=== PATIENT | female | born 1940 | race Caucasian/White ===

== ENCOUNTER 2020-06-15 | Outpatient (REF) | payer MEDICARE, SELFPAY ==
[2020-06-20 14:46] LABS: FIT Int Ctl YES; FIT1 NEGATIVE (NEGATIVE); FIT2 NEGATIVE (NEGATIVE)
== END 2020-06-15 00:01 | disposition home or self-care (01) ==
LOC: HO.LNP
PROVIDERS: Visit Provider Internal Medicine
DX: Z12.11 Encounter for screening for malignant neoplasm of colon (principal)
CPT/HCPCS: 82274

== ENCOUNTER 2021-02-08 09:05 | Day surgery (SDC) | payer MEDICARE, SELFPAY ==
[2021-02-02 12:58] VITALS: BMI 22.6
--- NOTE | 2021-02-07 15:42 | HO.ANESPROP2 ---
Documented by User: Angella Rene NP 02/20/21 14:26 HPI - Anesthesia Eval Consult details Narrative: 80yo F for Colonoscopy [facility] Past Medical History Medical History Arthritis Skin cancer Surgical History Surgical History H/O colonoscopy Hx of section Hx of hysterectomy Social History Social History Household Members Other:: Patient Tobacco Use Status: Tobacco use Unknown Use of substances other than those prescribed or required for medical reasons: No Advance Directives Information Provided: Yes (informational brochure mailed) Advance Directives on File: No Patient : No Meds Allergies Allergy/AdvReac Type Severity Reaction Status Date / Time NSAIDS (Non-Steroidal Allergy Unknown Unknown Verified 02/02/21 12:53 Anti-Inflamma Penicillins Allergy Unknown Unknown Verified 02/02/21 12:53 Sulfa (Sulfonamide Allergy Unknown Unknown Verified 02/08/21 09:41 Antibiotics) [SULFA (SULFONAMIDE ANTIBIOTICS)] Home Medications Medication Instructions Recorded Confirmed Last Taken Type cetirizine 10 mg tablet (Zyrtec) 10 mg PO DAILY 02/02/21 02/02/21 Unknown History fluticasone propionate 50 1 spray INTRANASAL DAILY 02/02/21 02/02/21 Unknown History mcg/actuation nasal spray,suspension multivitamin 1 tab PO DAILY 02/02/21 02/02/21 Unknown History Exam Exam Date and Time: February 07, 2021 1542 Height,Weight and Vital Signs: Height 5 ft 1 in Weight 54.431 kg Assessment and Plan Assessment Anesthesia Assessment: Chart Reviewed Documented by User: Noa Loomis MD 02/08/21 09:15 [facility] Past Medical History Medical History Arthritis Skin cancer Functional capacity: independent ambulation Patient : No Family History Family history of problems with anesthesia: No Surgical History Surgical History H/O colonoscopy Hx of section Hx of hysterectomy Social History Social History Household Members Other:: Patient Tobacco Use Status: Tobacco use Unknown Use of substances other than those prescribed or required for medical reasons: No Advance Directives Information Provided: Yes (informational brochure mailed) Advance Directives on File: No Patient : No Meds Allergies Allergy/AdvReac Type Severity Reaction Status Date / Time NSAIDS (Non-Steroidal Allergy Unknown Unknown Verified 02/02/21 12:53 Anti-Inflamma Penicillins Allergy Unknown Unknown Verified 02/02/21 12:53 Sulfa (Sulfonamide Allergy Unknown Unknown Verified 02/08/21 09:41 Antibiotics) [SULFA (SULFONAMIDE ANTIBIOTICS)] Home Medications Medication Instructions Recorded Confirmed Last Taken Type cetirizine 10 mg tablet (Zyrtec) 10 mg PO DAILY 02/02/21 02/02/21 Unknown History fluticasone propionate 50 1 spray INTRANASAL DAILY 02/02/21 02/02/21 Unknown History mcg/actuation nasal spray,suspension multivitamin 1 tab PO DAILY 02/02/21 02/02/21 Unknown History Assessment and Plan Final Anesthetic Review Family History of Problems with Anesthesia: No Final Preanesthetic Review: No Changes in Pt Med Stat Patient Risk: Low Procedure Risk: Low Anesthetic Plan Anesthetic Plan: MAC: Disposition: Standard PACU
[2021-02-08 09:08] VITALS: BP 104/56; PULSE 63; RESP 17; TEMP 36.6; O2SAT 97
[2021-02-08] MEDS: Lactated Ringers 1,000 ML 100 ML IVCONT (09:33)
[2021-02-08] MEDS: Sodium Phosphate,Mono-Dibasic 133 ML ENEMA PR (09:41)
--- NOTE | 2021-02-08 11:38 | PM.OP ---
Brief Operative Note Date of Service: 02/08/21 Pre-op diagnosis: Screening Post-op diagnosis: other (Colon polyp) Procedure: Colonoscopy to the cecum with cold snare polypectomy Surgeon: Robert Garcia Anesthesia: MAC Was an Ag Service Manager used for this Procedure?: No Estimated blood loss (mL): 3.0 Pathology: other (A. Cecal polyp) Condition: stable Disposition: PACU
[2021-02-08 11:39] VITALS: BP 94/48; PULSE 69; RESP 14; TEMP 36.4; O2SAT 94
--- NOTE | 2021-02-08 11:39 | HO.POSTANES ---
Post Anesthesia Evaluation Post Anesthesia Evaluation Vital Signs: Vital Signs Temp Pulse Resp BP Pulse Ox 02/08/21 09:08 98 F 63 17 104/56 L 97 Anesthesia: Monitored Mental Status: Awake Pain Control: Satisfactory Nausea/Vomiting: None Hydration: Adequate Anesthesia-Related Issues: No Anes. Related Issues
[2021-02-08 11:54] VITALS: BP 84/45; PULSE 66; RESP 16; O2SAT 96
[2021-02-08 12:09] VITALS: BP 90/47; PULSE 54; RESP 18; O2SAT 99
[2021-02-08 12:24] VITALS: BP 104/51; PULSE 55; RESP 18; TEMP 36.4; O2SAT 95
--- NOTE | 2021-02-08 12:29 | OP_ITS ---
SURGEON: Robert Garcia MD INDICATIONS: The patient presents for evaluation of personal history of colon polyps, family history of colon cancer, and colorectal cancer screening. Full consent has been obtained from her for this, including risks of bleeding and perforation. PREOPERATIVE DIAGNOSIS: POSTOPERATIVE DIAGNOSIS: PROCEDURE PERFORMED: Colonoscopy to the cecum and terminal ileum with snare polypectomy. ESTIMATED BLOOD LOSS: COMPLICATIONS: ANESTHESIA: Monitored anesthesia care. ASSISTANTS: SPECIMENS: PREOPERATIVE DIAGNOSES: Colorectal cancer screening, personal history of colon polyps, family history of colon cancer. POSTOPERATIVE DIAGNOSES: Colorectal cancer screening, personal history of colon polyps, family history of colon cancer, colon polyp, diverticulosis and internal hemorrhoids. DESCRIPTION OF PROCEDURE: The patient was placed in the left lateral decubitus position. The digital rectal exam revealed no abnormalities. The Olympus video pediatric colonoscope was entered into the rectum and advanced to the cecum with the assistance of abdominal wall pressure. Once in the cecum, I did identify normal-appearing cecal pouch other than an approximately 5 mm raised and grossly adenomatous polyp, which was snared and removed with the cold snare. The polypectomy site appeared to be clean, without any sign of residual polyp nor any significant bleeding. The remainder of the cecum appeared normal. The terminal ileum was cannulated and appeared normal. The scope was withdrawn back in the colon. The scope was slowly withdrawn assessing all mucosal surfaces carefully. Preparation was excellent. I did not visualize any other polyps, colitis, nor angiodysplasia. There was a mild amount of sigmoid diverticulosis. In the rectum, scope was retroflexed visualizing internal hemorrhoids, but no other pathology. The rectal mucosa appeared normal. The scope was straightened out and withdrawn from the patient. She tolerated the procedure well and was returned to recovery area in stable condition. IMPRESSION: 1. Colon polyp, status post snare polypectomy. 2. Diverticulosis. 3. Internal hemorrhoids. PLAN: The results of the pathology will be checked. Given the relatively minimal findings and her age, I do not think she will need any further screening colonoscopies. She will otherwise see me on a p.r.n. basis. She was advised not to use any aspirin and NSAIDs for 1 week. MD VLAD Jimenez/PETRA / [id number]
== END 2021-02-08 12:54 | disposition home or self-care (01) ==
PROVIDERS: PCP Internal Medicine; Visit Provider Internal Medicine
PROC: 0DJD8ZZ Inspection of Lower Intestinal Tract, Via Natural or Artificial Opening Endoscopic (ICD-10-PCS; CPT 45378; principal; 2021-02-08 10:10)
DX: Z12.11 Encounter for screening for malignant neoplasm of colon (principal); Z86.010 Personal history of colon polyps; Z80.0 Family history of malignant neoplasm of digestive organs; D12.0 Benign neoplasm of cecum; K57.30 Diverticulosis of large intestine without perforation or abscess without bleeding; K64.8 Other hemorrhoids; Z85.828 Personal history of other malignant neoplasm of skin
CPT/HCPCS: 45385; 88305

== ENCOUNTER 2024-08-07 13:19 | Outpatient (AMB) | payer MEDICARE, SELFPAY ==
--- NOTE | 2024-08-07 13:20 | MHC.PC.OV ---
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: No Accompanied by: Self / Same As Patient Allergies NSAIDS (Non-Steroidal Anti-Inflamma Allergy (Unknown, Verified 08/07/24 13:57) Unknown Penicillins Allergy (Unknown, Verified 08/07/24 13:57) Unknown Sulfa (Sulfonamide Antibiotics) [SULFA (SULFONAMIDE ANTIBIOTICS)] Allergy (Unknown, Verified 08/07/24 13:57) Unknown Medication List - Last Reconciled 08/07/24 by Corina Hale PA-C ammonium lactate 12% 1 appl topical BID biotin 5 mg PO DAILY cholecalciferol (vitamin D3) 25 mcg PO DAILY estradiol 1 patch transdermal QWEEK estradiol 0.01%(0.1mg/gram) vaginal omega-3 fatty acids 500 mg PO DAILY potassium chloride ER 20 mEq PO DAILY vit A,C,I-[id number]-[id number]-[id number]-qef-bxwp 1000 unit-300mg -100 unit-2 mg 1,000 unit-300mg -100 unit-2 mg tabs PO Tobacco use date assessed: 08/07/24 Fall risk assessment: No Falls in past year Last assessed Fall Risk: 08/07/24 Dental Screening Dental Screen Date: 08/07/24 Did you have a dental visit in the last 12 months?: Yes Did you have a dental problem in the last 6 months where you did not have access to dental care?: No Was dental information given to patient?: Patient has dentist HPI follow up HPI Details The patient is an 83-year-old female presenting for a 3-6 months follow-up and to establish new primary care provider. She was a patient of Dr. Dominguez who currently retired in April of 2024. She is here to discuss her chronic medical conditions. She denies any acute complaints at this time. She has a notable history including surgical management of uterine cancer, resulting in a complete hysterectomy. Additionally, there is a history of basal cell carcinoma treatment with various dermatological interventions, including full facial procedures. The patient also manages fibromyalgia with current medication aiding symptom relief and suffers from arthritis affecting primarily her hands. She reports experiencing memory loss, which she perceives is increasing over time. Discussion highlighted a concern for bone density evaluation, noting the absence of recent scans. She adheres to screening protocols, with a reported normal mammogram and scheduled colonoscopy screenings. Social History - Lives independently, engages actively in taking care of her daily activities and chores. - Engages in personal and household activities without assistance. [facility] Medical History (Updated 08/07/24 @ 14:31 by Corina Hale PA-C) Advanced directives, counseling/discussion Vitamin D deficiency Basal cell carcinoma Follow-up exam, less than 3 months since previous exam Basal cell carcinoma (BCC) in situ of skin Colon cancer screening History of mammogram (~06/26/24) Adenomatous polyp Herpes zoster without complication Uterine cancer Fibromyalgia Irritable bowel syndrome Cataracts, bilateral Derangement of right patella Primary osteoarthritis Multiple allergies Memory loss Skin cancer Arthritis Surgical History History of tonsillectomy Hx of section Hx of hysterectomy H/O colonoscopy (~02/08/21) Family History Mother PSP (progressive supranuclear palsy) Colon cancer Father No problems noted. Maternal Grandmother Diabetes Social History Household Members Other:: Housing: House Alcohol intake: current Alcohol intake frequency: does not drink Patient Tobacco Use Status: Former Tobacco user service: No Current occupational status: retired Cognitive needs: No Hearing needs: No Vision needs: Yes (RX glasses) Questionnaire PHQ-9 Over the last 2 weeks, how often have you been bothered by any of the following problems? 1. Little interest or pleasure in doing things: not at all 2. Feeling down, depressed, or hopeless: not at all 3. Trouble falling or staying asleep, or sleeping too much: not at all 4. Feeling tired or having little energy: not at all 5. Poor appetite or overeating: not at all 6. Feeling bad about yourself - or that you are a failure or have let yourself or your family down: not at all 7. Trouble concentrating on things, such as reading the newspaper or watching television: not at all 8. Moving or speaking so slowly that other people could have noticed. Or the opposite - being so fidgety or restless that you have been moving around a lot more than usual: not at all 9. Thoughts that you would be better off or of hurting yourself in some way: not at all Total score: 0 Depression Screening Interpretation: Negative Depression Screening Done: Yes 17697 - PHQ-9 Billing: Yes Source: Developed by Drs. Robert Farfan, Catalina Castellano, Hernando Cardenas and colleagues, with an educational so from [employer]. Thrive Questionnaire Date Thrive assessed: 08/07/24 I am a: Patient What is your living situation today?: I have a steady place to live Within the past 12 months, did the food you bought not last and you didn't have the money to get more?: Never true Within the past 12 months, did you worry whether your food would run out before you got money to buy more?: Never true Do you have trouble paying for medicines?: No Do you have trouble getting transportation to medical appointments?: No Do you have trouble paying your heating and electricity bill?: No Do you have trouble taking care of your child, family member or friend?: No Do you have trouble with day-to-day activities such as bathing, preparing meals, shopping, managing finances, etc.?: No Are you currently unemployed and looking for a job?: No Are you interested in more education?: No Please select the resources that you would like help with: None THRIVE Score: 0 AUDIT C Alcohol Use Questionnaire (AUDIT-C) 1. How often do you have a drink containing alcohol?: Monthly or less 2. How many drinks containing alcohol do you have on a typical day when you are drinking?: 1 or 2 3. How often do you have six or more drinks on one occasion?: Never Total Score: 1 Score Reviewed/Action Taken: No CHANDANA-7 AMB Questionnaire CHANDANA-7 Date CHANDANA - 7 assessed: 08/07/24 Feeling nervous, anxious, or on edge: 0 = Not at all Not being able to stop or control worryin = Not at all Worrying too much about different things: 0 = Not at all Trouble relaxin = Not at all Being so restless that it is hard to sit still: 0 = Not at all Becoming easily annoyed or irritable: 0 = Not at all Feeling afraid as if something awful might happen: 0 = Not at all Total CHANDANA-7 score (0-4 normal; 5-9 mild; 10-14 moderate; 15-21 severe): 0 Source: Developed by Drs. Robert Farfan, Catalina Castellano, Hernando Cardenas and colleagues, with an educational so from [employer]. CHANDANA-7 Assessment Billing CHANDANA-7 Assessment Tool: CHANDANA-7 Assessment 16172 Review of Systems Const Details: - Skin: Reports history of basal cell carcinoma, dermatological procedures. - Musculoskeletal: Reports arthritis predominantly in the hands. - Neurological: Reports memory loss. - Psychological: Denies symptoms suggestive of anxiety or depression. - Gastrointestinal: Denies irritable bowel syndrome, black or bloody stools. - Respiratory: Denies shortness of breath during routine activities or while lying down. - Cardiovascular: Denies chest pain. - Endocrine: Reports vitamin D deficiency. Physical exam (Primary Care) Vital Signs: Last Vital Signs Pulse 72 08/07/24 13:24 BP 128/82 08/07/24 13:24 Pulse Ox 95 08/07/24 13:24 Oxygen Delivery Method Room Air 08/07/24 13:24 Care Plan Goal for BP management: <130/90 at Goal pt refused weight Tobacco/Smoking Status: Tobacco use Status Tobacco use date assessed 08/07/24 08/07/24 13:39 Patient Tobacco Use Status Former Tobacco user 08/07/24 13:39 PHQ-9: PHQ-9 Score PHQ-9: Total score 0 08/07/24 13:41 Depression Screening Interpretation: Negative Thrive Assessment: Date of Thrive Assessment Date Thrive assessed 08/07/24 08/07/24 13:39 ACP: Patient does not have advance care planning on file. She reports her healthcare proxy would be her son. I gave her information for healthcare proxy and most form she was not ready to fill out the paperwork today. She would like to discuss further with her family and will most likely have a decision in 3-6 months at her next follow-up visit. Const Other: Appearance: Alert. Oriented X3. No acute distress. Head: Normal external exam. Normocephalic. Atraumatic. Eyes: Pupils are equal, round, and reactive to light. Extraocular movements intact. Conjunctiva and sclera normal. Eyelids normal. Ears: External auditory canal normal. Tympanic membranes normal. Throat: Pharynx normal. Uvula midline. Moist mucous membranes. Neck: Normal inspection. Neck supple. Full range of motion. No adenopathy. Thyroid Normal. No meningeal signs. No neck mass noted. Cardiovascular: Normal heart rate and rhythm. Heart sound normal. No murmurs noted. Pulses normal throughout. Respiratory: No respiratory distress. Painless inspiration. Breath sounds normal. No wheezes/rales/rhonchi noted. Chest nontender. No accessory muscle usage noted or decreased air movement noted. Abdomen: Soft and nontender. Bowel sounds normal in all 4 quadrants. No distention noted. No organomegaly noted. No visible injury noted. Back: No costovertebral angle tenderness. Full range of motion noted. Skin: Skin warm and dry. Normal skin color. Normal skin turgor. No rashes/lesions/lacerations noted. Extremities: No lower extremity edema. Extremities exhibit normal range of motion. Extremities nontender. Neuro: Oriented X 3. No motor deficit. No sensory deficit. Reflexes normal. Results Reviewed Results Reviewed: - Labs: Vitamin D deficiency previously noted. - Tests: Last mammogram reported normal, lateral mammographic density not appreciably dense, mammogram was dated June 26 of this year. Coding Level of Care Code New Pt Level 4 (35104) Complex EM visit Add On G2211 Diagnoses Follow-up exam, less than 3 months since previous exam Z09 Colon cancer screening Z12.11 Uterine cancer C55 Fibromyalgia M79.7 Irritable bowel syndrome K58.9 Primary osteoarthritis M19.91 Memory loss R41.3 Basal cell carcinoma C44.91 Vitamin D deficiency E55.9 Advanced directives, counseling/discussion Z71.89 Additional Codes PHQ-9 - 89704 - PHQ-9 Billing: Yes ([id number]) CHANDANA-7 Assessment Billing - CHANDANA-7 Assessment Tool: CHANDANA-7 Assessment 01642 ([id number]) Time Spent (min) 40 Assessment & Plan Assessment & Plan (1) Follow-up exam, less than 3 months since previous exam: Code(s): Z09 - Encounter for follow-up examination after completed treatment for conditions other than malignant neoplasm Category: Medical (2) Colon cancer screening: Code(s): Z12.11 - Encounter for screening for malignant neoplasm of colon Category: Medical Plan: Will refer to last dipper patient due for colonoscopy by 2025. She would like to go closer to her home instead of [facility]. Her last colonoscopy was February of 2023. (3) Uterine cancer: Comment: s/p uterine removal Code(s): C55 - Malignant neoplasm of uterus, part unspecified Category: Medical Plan: The patient has no current treatment requirements post-hysterectomy. Condition is in remission will continue to monitor. (4) Fibromyalgia: Code(s): M79.7 - Fibromyalgia Category: Medical Plan: Management is stable with medications currently effective. Emphasis on maintaining physical activity. Condition is chronic and stable continue to monitor. (5) Irritable bowel syndrome: Code(s): K58.9 - Irritable bowel syndrome, unspecified Category: Medical Plan: Patient denies any GI complaints at this time. Condition is chronic and stable continue to monitor. (6) Primary osteoarthritis: Code(s): M19.91 - Primary osteoarthritis, unspecified site Category: Medical Plan: Management to continue with no new interventions. Encourage regular hand exercises. Condition is chronic and stable continue to monitor. (7) Memory loss: Code(s): R41.3 - Other amnesia Category: Medical Plan: Suggest cognitive evaluation if symptoms progress but patient to manage with memory aids currently. Condition is chronic and stable will continue to monitor. (8) Basal cell carcinoma: Code(s): C44.91 - Basal cell carcinoma of skin, unspecified Category: Medical Plan: Dermatological care to continue with her specialist; sun protection reiterated. Condition is chronic and stable continue to monitor. (9) Vitamin D deficiency: Code(s): E55.9 - Vitamin D deficiency, unspecified Category: Medical Plan: Reinforce adherence to current supplementation regimen. Condition is chronic and stable continue to monitor. (10) Advanced directives, counseling/discussion: Code(s): Z71.89 - Other specified counseling Category: Medical Plan: Discussed with patient about advanced directives and gave her information. She will discuss with family and return with decisions at her next 3-6 month follow-up. Plan Plan Patient was informed and verbally consented to the use of an ambient scribe for clinic note documentation during this visit. 1. Uterine Cancer The patient has no current treatment requirements post-hysterectomy. Advanced directives discussion is encouraged to finalize her preferences. 2. Fibromyalgia Management is stable with medications currently effective. Emphasis on maintaining physical activity. 3. Arthritis Management to continue with no new interventions. Encourage regular hand exercises. 4. Basal Cell Carcinoma Dermatological care to continue with her specialist; sun protection reiterated. 5. Memory Loss Suggest cognitive evaluation if symptoms progress but patient to manage with memory aids currently. 6. Vitamin D Deficiency Reinforce adherence to current supplementation regimen. 7. Hyperlipidemia Plan for blood work to assess and continue monitoring through dietary management. During the visit, I reviewed the patient's current medical status and management plans. Our discussion focused on the stable management of fibromyalgia and arthritis, with continued use of current therapies and recommended physical activity. Regarding basal cell carcinoma, I emphasized the importance of sun protection and follow up with her home delivery driver. The patient was informed of the potential need for a cognitive assessment to evaluate the memory loss progression. We worked through the importance of advanced directives and healthcare proxy documents and how these relate to her wishes regarding extraordinary life-saving measures. I ordered vitamin D and lipid panels to further assess her baseline and manage supplementation needs. We discussed her wellness status and next planned colonoscopy to keep her preventive care schedule up to date. I clarified fasting requirements for lab work and emphasized the importance of consistent dietary management. Orders: Orders XR DEXA axial skeleton Today M81.0 - Age-related osteoporosis without current pathological fracture Complete Blood Count Auto Diff Today Z00.00 - Encounter for general adult medical examination without abnormal findings Hemoglobin A1c Today Z00.00 - Encounter for general adult medical examination without abnormal findings Liver Panel Today Z00.00 - Encounter for general adult medical examination without abnormal findings Comprehensive [place]. Panel Fast Today Z00.00 - Encounter for general adult medical examination without abnormal findings Vitamin B12 and Folate Today Z00.00 - Encounter for general adult medical examination without abnormal findings Vitamin D 25-OH Total Today Z00.00 - Encounter for general adult medical examination without abnormal findings TSH reflex Free T4 Today Z00.00 - Encounter for general adult medical examination without abnormal findings C Reactive Protein Today Z00.00 - Encounter for general adult medical examination without abnormal findings Lipid Panel Today Z00.00 - Encounter for general adult medical examination without abnormal findings Magnesium Today Z00.00 - Encounter for general adult medical examination without abnormal findings Erythrocyte Sedimentation Rate Today Z00.00 - Encounter for general adult medical examination without abnormal findings Referrals Gastroenterology Referral Z12.11 - Encounter for screening for malignant neoplasm of colon Patient Instructions: - Continue with your medication regimen for fibromyalgia and inform us of any changes in your symptoms. - Maintain regular physical activity and engage in stretching exercises, particularly for your hands. - Follow up with your home delivery driver for any skin concerns and use sun protection regularly. - Continue vitamin D supplements and adhere to the plan. - Schedule and complete fasting blood work to check your lipid levels. - Discuss and update your advanced directives and healthcare proxy to reflect your wishes. - Follow up in six months or sooner if any symptoms worsen.
[2024-08-07 13:24] VITALS: BP 128/82; PULSE 72; O2SAT 95
--- OUTSIDE RECORDS SUMMARY | 2024-08-07 13:39 | XMS_ITS | Data Portability ---
Author Organization [facility], , [facility] Address [address] [place] [address] Assessment No assessment recorded. Plan of Treatment Reminders Order Date Submit Date Provider Last Modified By Organization Details Last Modified Time Details Appointments None record ed. Lab None record ed. Referral None record ed. Procedures None record ed. Surgeries None record ed. Imaging None record ed. Medication Orders None record ed. Patient TargetsNo targets recorded. Patient InstructionsNo instructions recorded. Reason for Referral None Reported. Results Created Date Observation Date Name Description Value Unit Range Abnormal Flag Note LastModifiedBy Organization Detail LastModifiedTime Result Notes None recorded. Procedures Surgical History Date Name Laterality Status Provider Name and Address Organization Details Recorded Time 01/01/20 15 Ranjana - EGD completed Dhaval Chilel MD [address] [place] [address], [phone], [facility] 12/31/2014 10:29:47 01/01/20 15 Ranjana - Colonoscopy completed Dhaval Chilel MD [address] [place] [address], [phone], [facility] 12/31/2014 10:29:48 12/26/19 05 completed Not Available [facility] 1 06:05:52 Imaging Results None recorded. Procedure Notes None recorded. Medical Equipment None Reported. Medications Name Sig Start Date Stop Date Status Note LastModified by Organization Details LastModified Time prochlorperazine maleate 10 mg tablet active Not Available Not Available Not Available peg 3350-electrolytes 236 gram-22.74 gram-6.74 gram-5.86 gram solution active Not Available Not Available Not Available Vitals None Recorded Social History None recorded. Functional Status None recorded. Mental Status None recorded. Family History Nothing Reported. Medical History No medical history recorded. Gynecological HistoryNo gynecological history recorded. Obstetrics History GPAL:G 0 P 0 0 0 0 Past Encounters Encounter ID Performer Location Encounter Start Date Encounter Closed Date Diagnosis/Indication Diagnosis SNOMED-CT Code Diagnosis ICD10 Code Diagnosis Note [id number] JONATHAN CAMP MD [facility], [address] [address] 12/25/2004 10:05:34 04/28/2008 02:02:29 [id number] Dhaval Chilel MD [facility], [address] [address] 12/31/2014 08:39:38 12/31/2014 12:40:20 Health Concerns Section Related Observation LastModified by Organization Detai ls LastModified Time None Recorded Concern Status LastModified by Organization Details LastModified Time None Recorded Advance Directives Directive None Recorded Payers Encounter Date Sequence Insurance Name Policy Number Policy Blue Covered Member ID Blue Member ID Guarantor Name 12/25/2004 1 [facility] [id number] Dalia Acuna [id number] Dalia Acuna 12/31/2014 1 [place] PPO) [id number] Dalia Acuna [id number] Dalia Acuna 12/31/2014 2 [place] Dalia Acuna [id number] Dalia Acuna OBGyn Episode No OBEpisode recorded.
== END 2024-08-07 14:14 | disposition home or self-care (01) ==
LOC: HO.HMCSH 13:19
PROVIDERS: PCP Internal Medicine; Visit Provider Physician Assistant Medical
DX: Z09 Encounter for follow-up examination after completed treatment for conditions other than malignant neoplasm (principal); Z12.11 Encounter for screening for malignant neoplasm of colon; C55 Malignant neoplasm of uterus, part unspecified; M79.7 Fibromyalgia; K58.9 Irritable bowel syndrome, unspecified; M19.91 Primary osteoarthritis, unspecified site; R41.3 Other amnesia; C44.91 Basal cell carcinoma of skin, unspecified; E55.9 Vitamin D deficiency, unspecified; Z71.89 Other specified counseling

== ENCOUNTER → 2024-08-07 13:19 | Outpatient (BNVA) | payer MEDICARE, SELFPAY | PROVIDERS: PCP Internal Medicine; Visit Provider Physician Assistant Medical | DX: M79.7 Fibromyalgia (principal); K58.9 Irritable bowel syndrome, unspecified; M19.91 Primary osteoarthritis, unspecified site; R41.3 Other amnesia; C44.91 Basal cell carcinoma of skin, unspecified; E55.9 Vitamin D deficiency, unspecified; Z09 Encounter for follow-up examination after completed treatment for conditions other than malignant neoplasm; Z85.42 Personal history of malignant neoplasm of other parts of uterus; Z90.710 Acquired absence of both cervix and uterus; Z71.89 Other specified counseling | CPT/HCPCS: 96127; 99202 ==

== ENCOUNTER 2024-10-06 10:56 | Outpatient (REF) | payer MEDICARE, SELFPAY ==
--- NOTE | ~2024-10-06 | MM_ITS ---
EXAMINATION: DXA BONE DENSITY AXIAL HISTORY: M81.0 - Age-related osteoporosis without current pathological fracture TECHNIQUE: Teads Dual energy absorptiometry (DEXA) of the lumbar spine, total left hip, and femoral neck was performed. COMPARISON: There are no prior studies for comparison. FINDINGS: The bone mineral density of the lumbar spine is 1.104 g/cm2, corresponding to a T-score of -0.6, and a Z-score of 1.5. This is indicative of normal bone mineral density. The bone mineral density of the left total hip is 0.730 g/cm2, corresponding to a T-score of -2.2, and a Z-score of 0.1. This is indicative of osteopenia. The bone mineral density of the left femoral neck is 0.717 g/cm2, corresponding to a T-score of -2.3, and a Z-score of 0.1. This is indicative of osteopenia. FRACTURE RISK: The FRAX index suggests a risk of major osteoporotic fracture of 34.5%, and of hip fracture 24.2%. MM/XR DEXA axial skeleton IMPRESSION: Based on bone mineral density, and according to World Health Organization (WHO) criteria, the diagnosis is consistent with osteopenia. Statistically, 68% of repeat scans fall within 1 SD (+/- 0.010 g/cm2 for AP spine L1-L4) and 1 SD (+/- 0.012 g/cm2 for femur total) FRAX is a trademark of the [employer] [place] for Metabolic Bone Disease, a World Health Organization (WHO) Collaborating Center. Electronically signed by: Robert Espitia MD 10/06/2024 11:29 AM EDT
--- OUTSIDE RECORDS SUMMARY | 2024-10-06 12:10 | XMS_ITS | Data Portability ---
Author Organization [facility], , [facility] Address [address] [place] [address] Assessment No assessment recorded. Plan of Treatment [...] Ranjana - EGD completed Dhaval Chilel MD [address] [place] [address], [phone], [facility] 12/31/2014 10:29:47 01/01/20 15 Ranjana - Colonoscopy completed Dhaval Chilel MD [address] [place] [address], [phone], [facility] 12/31/2014 10:29:48 12/26/19 05 completed Not Available [facility] 1 06:05:52 Imaging Results None recorded. Procedure [...] SNOMED-CT Code Diagnosis ICD10 Code Diagnosis Note [id number] [facility], [address] [address] 12/25/2004 10:05:34 04/28/2008 02:02:29 [id number] Dhaval Chilel MD [facility], [address] [address] 12/31/2014 08:39:38 12/31/2014 12:40:20 Health Concerns Section Related Observation LastModified by Organization Detai ls LastModified Time None Recorded Concern Status LastModified by Organization Details LastModified Time None Recorded Advance Directives Directive None Recorded Payers Insurance Date Sequence Insurance Name Policy Number Policy Blue Covered Member ID Blue Member ID Guarantor Name 12/27/2014 1 [facility] [id number] Dalia Susse [id number] Dalia Susse 12/31/2014 2 [place] Dalia S Susse [id number] Dalia Susse 12/27/2014 2 [place] Dalia Susse [id number] Dalia Susse 01/11/2015 1 [facility] (MEDICARE REPLACEMENT PPO) [id number] Dalia Susse [id number] Dalia Susse OBGyn Episode No OBEpisode recorded.
== END 2024-10-06 10:57 | disposition home or self-care (01) ==
LOC: HO.MAMMO 10:56
PROVIDERS: PCP Internal Medicine; Visit Provider Physician Assistant Medical
DX: M81.0 Age-related osteoporosis without current pathological fracture (principal)
CPT/HCPCS: 77080

== ENCOUNTER → 2024-10-06 11:00 | Outpatient (BNV) | payer MEDICARE, SELFPAY | PROVIDERS: PCP Internal Medicine; Visit Provider Radiology Diagnostic Radiology | DX: E28.39 Other primary ovarian failure (principal) | CPT/HCPCS: 77080 ==

== ENCOUNTER 2025-02-10 13:11 | Outpatient (AMB) | payer MEDICARE, SELFPAY ==
--- NOTE | 2025-02-10 13:13 | A.OFFPC_ITS ---
Vital Signs 02/10/25 13:14 BMI Reason not done Patient refused/unable BP 102/54 L Blood Pressure Location Rt brachial Position Sitting Respiration 14 Pulse 66 Pulse Source Pulse Oximeter Temp 97.6 F Temp Source Temporal Artery Scan Pulse Oximetry (%) 98 Oxygen Delivery Method Room Air Comment pt refused wt/ht Intake Visit Reasons: 6 month f/u Industrial Engineer Required: No Accompanied by: Self / Same As Patient Allergies NSAIDS (Non-Steroidal Anti-Inflamma Allergy (Unknown, Verified 02/10/25 13:24) Unknown Penicillins Allergy (Unknown, Verified 02/10/25 13:24) Unknown Sulfa (Sulfonamide Antibiotics) (SULFA (SULFONAMIDE ANTIBIOTICS)) Allergy (Unknown, Verified 02/10/25 13:24) Unknown Medication List - Last Reconciled 02/10/25 by Corina Hale PA-C ammonium lactate 12% 1 appl topical BID biotin 5 mg PO DAILY cholecalciferol (vitamin D3) 25 mcg PO DAILY estradiol 1 patch transdermal QWEEK estradiol 0.01%(0.1mg/gram) vaginal omega-3 fatty acids 500 mg PO DAILY potassium chloride ER 20 mEq PO DAILY Tobacco use date assessed: 08/07/24 Dental Screening Dental Screen Date: 08/07/24 HPI 6 month f/u HPI Details The patient is an 84-year-old female presenting for an annual physical exam and evaluation of a finger injury. She sustained an injury to her right third and fourth fingers last while leaf blowing. She experienced bruising, redness, and significant pain, which has been alleviated by taping the fingers together. She was evaluated at a hospital where an X-ray ruled out a fracture, and the injury was diagnosed as a sprain. The patient also reports a tick bite approximately one month ago, which caused a red, round lesion and interfered with her sleep. She self-treated with a course of doxycycline she had on hand from a previous prescription. The patient underwent a colonoscopy on December 31, during which one polyp was found and biopsied. She experienced severe post-procedural complications, including significant abdominal gas and severe arm pain that lasted for a week. A nurse informed her that the facility ran out of CO2 during the procedure, necessitating the use of air, which prolonged the procedure and led to her lying on her arm for an extended period. The patient has a diagnosis of osteopenia from a prior bone density scan. A referral to endocrinology was placed previously, but she never received a call for an appointment. She is unable to take oral medications for this condition. The patient reports getting easily tired and is no longer able to run up a down- escalator. 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 Social History - Physical Activity: The patient reports being unable to run up a down escalator anymore as it is too tiring. - Family History: Patient denies any fam rissa history of heart attacks. [facility] Medical History (Updated 02/10/25 @ 14:04 by Corina Hale PA-C) Annual physical exam Heart murmur Prophylactic measure Sprain, finger Osteopenia Advanced directives, counseling/discussion Vitamin D deficiency Basal cell carcinoma Follow-up exam, less than 3 months since previous exam Basal cell carcinoma (BCC) in situ of skin Colon cancer screening History of mammogram (~06/26/24) Adenomatous polyp Herpes zoster without complication Uterine cancer Fibromyalgia Irritable bowel syndrome Cataracts, bilateral Derangement of right patella Primary osteoarthritis Multiple allergies Memory loss Skin cancer Arthritis Surgical History History of tonsillectomy Hx of section Hx of hysterectomy H/O colonoscopy (~01/01/25) Family History Mother PSP (progressive supranuclear palsy) Colon cancer Father No problems noted. Maternal Grandmother Diabetes Social History Household Members Other:: Housing: House Alcohol intake: current Alcohol intake frequency: does not drink Patient Tobacco Use Status: Former Tobacco user service: No Current occupational status: retired Cognitive needs: No Hearing needs: No Vision needs: Yes (RX glasses) Questionnaire PHQ-9 Over the last 2 weeks, how often have you been bothered by any of the following problems? 1. Little interest or pleasure in doing things: not at all 2. Feeling down, depressed, or hopeless: not at all 3. Trouble falling or staying asleep, or sleeping too much: not at all 4. Feeling tired or having little energy: not at all 5. Poor appetite or overeating: not at all 6. Feeling bad about yourself - or that you are a failure or have let yourself or your family down: not at all 7. Trouble concentrating on things, such as reading the newspaper or watching television: not at all 8. Moving or speaking so slowly that other people could have noticed. Or the opposite - being so fidgety or restless that you have been moving around a lot more than usual: not at all 9. Thoughts that you would be better off or of hurting yourself in some way: not at all Total score: 0 Depression Screening Interpretation: Negative Depression Screening Done: Yes 79303 - PHQ-9 Billing: Yes Source: Developed by Drs. Robert Farfan, Catalina Castellano, Hernando Cardenas and colleagues, with an educational so from [employer]. Thrive Questionnaire Date Thrive assessed: 08/07/24 I am a: Patient What is your living situation today?: I have a steady place to live Within the past 12 months, did the food you bought not last and you didn't have the money to get more?: Never true Within the past 12 months, did you worry whether your food would run out before you got money to buy more?: Never true Do you have trouble paying for medicines?: No Do you have trouble getting transportation to medical appointments?: No Do you have trouble paying your heating and electricity bill?: No Do you have trouble taking care of your child, family member or friend?: No Do you have trouble with day-to-day activities such as bathing, preparing meals, shopping, managing finances, etc.?: No Are you currently unemployed and looking for a job?: No Are you interested in more education?: No Please select the resources that you would like help with: None THRIVE Score: 0 AUDIT C Alcohol Use Questionnaire (AUDIT-C) 1. How often do you have a drink containing alcohol?: Monthly or less 2. How many drinks containing alcohol do you have on a typical day when you are drinking?: 1 or 2 3. How often do you have six or more drinks on one occasion?: Never Total Score: 1 Score Reviewed/Action Taken: No CHANDANA-7 AMB Questionnaire CHANDANA-7 Date CHANDANA - 7 assessed: 08/07/24 Feeling nervous, anxious, or on edge: 0 = Not at all Not being able to stop or control worryin = Not at all Worrying too much about different things: 0 = Not at all Trouble relaxin = Not at all Being so restless that it is hard to sit still: 0 = Not at all Becoming easily annoyed or irritable: 0 = Not at all Feeling afraid as if something awful might happen: 0 = Not at all Total CHANDANA-7 score (0-4 normal; 5-9 mild; 10-14 moderate; 15-21 severe): 0 Source: Developed by Drs. Robert Farfan, Catalina Castellano, Hernando Cardenas and colleagues, with an educational so from [employer]. CHANDANA-7 Assessment Billing CHANDANA-7 Assessment Tool: CHANDANA-7 Assessment 06655 Review of Systems Const Details: - Constitutional: Denies unintentional weight loss. - Cardiovascular: Reports dyspnea on exertion, specifically when trying to run up a down escalator. - Denies chest pain. - Gastrointestinal: Denies black or tarry stools. - Musculoskeletal: Reports pain, bruising, and swelling in the right third and fourth fingers following an injury. - Skin: Reports a prior tick bite that caused a red, round lesion. All systems reviewed & are unremarkable except as noted in HPI and below Physical exam (Primary Care) Vital Signs: Last Vital Signs Temp 97.6 F 02/10/25 13:14 Pulse 66 02/10/25 13:14 Resp 14 02/10/25 13:14 BP 102/54 L 02/10/25 13:14 Pulse Ox 98 02/10/25 13:14 Oxygen Delivery Method Room Air 02/10/25 13:14 Care Plan Goal for BP management: <140/90 at Goal Patient refused weight Tobacco/Smoking Status: Tobacco use Status Tobacco use date assessed 08/07/24 02/10/25 13:19 Patient Tobacco Use Status Former Tobacco user 02/10/25 13:19 PHQ-9: PHQ-9 Score PHQ-9: Total score 0 02/10/25 13:19 Depression Screening Interpretation: Negative Thrive Assessment: Date of Thrive Assessment Date Thrive assessed 08/07/24 02/10/25 13:19 Const Other: Appearance: Alert. Oriented X3. No acute distress. Head: Normal external exam. Normocephalic. Atraumatic. Eyes: Pupils are equal, round, and reactive to light. Extraocular movements intact. Conjunctiva and sclera normal. Eyelids normal. Ears: External auditory canal normal. Tympanic membranes normal. Throat: Pharynx normal. Uvula midline. Moist mucous membranes. Neck: Normal inspection. Neck supple. Full range of motion. No adenopathy. Thyroid Normal. No meningeal signs. No neck mass noted. Cardiovascular: Normal heart rate and rhythm. Heart sound normal. A murmur noted. Pulses normal throughout. Respiratory: No respiratory distress. Painless inspiration. Breath sounds normal. No wheezes/rales/rhonchi noted. Chest nontender. No accessory muscle usage noted or decreased air movement noted. Abdomen: Soft and nontender. Bowel sounds normal in all 4 quadrants. No di stention noted. No organomegaly noted. Back: No costovertebral angle tenderness. Full range of motion noted. Skin: Skin warm and dry. Normal skin color. Normal skin turgor. No rashes/lesions/lacerations noted. Extremities: No lower extremity edema. Extremities exhibit normal range of motion. Right hand third and fourth fingers are bruised and slightly swollen, with fingers taped together due to a sprain. All other extremities exhibit normal range of motion nontender. Normal capillary refill. Normal pulses. No cyanosis is noted. Neuro: Oriented X 3. No motor deficit. No sensory deficit. Reflexes normal. Results Reviewed Results Reviewed: - Finger X-ray: Normal, with no fracture identified. - Colonoscopy (December 31): Revealed one polyp, which was biopsied. - Bone Density Scan: Showed osteopenia. - Mammogram (03/05/2023): Is the most recent on record. Coding Level of Care Code Est Pt Level 4 (36242) Complex EM visit Add On G2211 Diagnoses Sprain, finger S63.619A Prophylactic measure Z29.9 Osteopenia M85.80 Heart murmur R01.1 Annual physical exam Z00.00 Additional Codes CHANDANA-7 Assessment Billing - CHANDANA-7 Assessment Tool: CHANDANA-7 Assessment 73150 ([id number]) PHQ-9 - 59247 - PHQ-9 Billing: Yes ([id number]) Time Spent (min) 60 Assessment & Plan Assessment & Plan (1) Sprain, finger: Code(s): S63.619A - Unspecified sprain of unspecified finger, initial encounter Category: Medical Plan: The patient's finger X-ray was noted to be normal, confirming a sprain rather than a fracture. An KALEB wrap was applied to the finger, using a tongue depressor as a splint, to be worn for about a week to provide stability and promote healing. The patient was instructed to remove the wrap for activities like showering. (2) Prophylactic measure: Code(s): Z29.9 - Encounter for prophylactic measures, unspecified Category: Medical Plan: A prescription for doxycycline will be sent to the [facility] at [facility] in [place] for the patient to have on hand for prophylaxis in case of a future tick bite. (3) Osteopenia: Code(s): M85.80 - Other specified disorders of bone density and structure, unspecified site Category: Medical Plan: Due to the patient's osteopenia and inability to tolerate oral medications, a referral to endocrinology is indicated. The referral information for the grab jack worker in [place] will be printed for the patient to call and schedule an appointment herself. (4) Heart murmur: Code(s): R01.1 - Cardiac murmur, unspecified Category: Medical Plan: A heart murmur was detected on physical exam. The possibility of this being related to age, genetics, or blood pressure was discussed. An echocardiogram was offered for further evaluation, but the patient declined at this time. The patient was advised to follow up if she develops chest pain or shortness of breath. (5) Annual physical exam: Code(s): Z00.00 - Encounter for general adult medical examination without abnormal findings Category: Medical Plan: This visit was established as the patient's annual physical. Fasting blood work, including a CBC and CMP, will be ordered to be completed within the month. A paper requisition for the labs will be printed as she will go to a [facility] lab on [address] [employer]. A referral will be placed for a new mammogram, as the last one on record was in February 2023. A follow-up appointment is scheduled in six months, on August 12. Plan Plan Patient was informed and verbally consented to the use of an ambient scribe for clinic note documentation during this visit. 1. Sprain Of Finger The patient's finger X-ray was noted to be normal, confirming a sprain rather than a fracture. An KALEB wrap was applied to the finger, using a tongue depressor as a splint, to be worn for about a week to provide stability and promote healing. The patient was instructed to remove the wrap for activities like showering. 2. Prophylactic Measures A prescription for doxycycline will be sent to the [facility] at [facility] in [place] for the patient to have on hand for prophylaxis in case of a future tick bite. 3. Osteopenia Due to the patient's osteopenia and inability to tolerate oral medications, a referral to endocrinology is indicated. The referral information for the grab jack worker in [place] will be printed for the patient to call and gayathri edule an appointment herself. 4. Heart Murmur A heart murmur was detected on physical exam. The possibility of this being related to age, genetics, or blood pressure was discussed. An echocardiogram was offered for further evaluation, but the patient declined at this time. The patient was advised to follow up if she develops chest pain or shortness of breath. 5. Annual Physical Examination This visit was established as the patient's annual physical. Fasting blood work, including a CBC and CMP, will be ordered to be completed within the month. A paper requisition for the labs will be printed as she will go to a [facility] lab on [address] [employer]. A referral will be placed for a new mammogram, as the last one on record was in February 2023. A follow-up appointme nt is scheduled in six months, on August 12. I have designated this visit as the patient's annual physical exam. We discussed her recent finger sprain, and I applied a soft splint for support, advising her to wear it for a week. I will prescribe doxycycline for her to have on hand for prophylaxis against future tick bites. I noted a heart murmur on examination and discussed potential causes, such as age-related valvular changes. I offered an echocardiogram for further evaluation, which the patient declined. I instructed her to return if she experiences any new chest pain or shortness of breath. We reviewed her health maintenance needs. I ordered fasting blood work and will provide a paper requisition for the lab of her choice. I will place a referral for a new mammogram. I provided her with the printed referral for endocrinology to manage her osteopenia, as she is unable to take multivitamins. We scheduled a follow-up appointment in six months. Orders: Orders UA CC w/rflx Micro + Cult Today Z00.00 - Encounter for general adult medical examination without abnormal findings MM screening mammo BI Today Z12.31 - Encounter for screening mammogram for malignant neoplasm of breast Medications: New doxycycline monohydrate 100 mg PO BID 28 tabs 0RF 14 days Patient Instructions: - Keep your injured finger wrapped with the splint for about a week to help it heal. - You can remove it when you shower or wash dishes. - A prescription for Doxycycline will be sent to the [facility] at [facility] in [place]. - Keep this medicine on hand in case you get another tick bite. - Go for fasting blood work within the next month. - Do not eat or drink anything except water or black coffee for 8-10 hours before the test. - You will receive a referral for a mammogram. - Please schedule an appointment for this screening. - You were given the referral information for an grab jack worker. - Please call them to schedule an appointment to discuss your bone health. - Please let us know if you develop any new chest pain or shortness of breath. - Your next appointment is in six months, on , August 12 at 1:00 PM.
[2025-02-10 13:14] VITALS: BP 102/54; PULSE 66; RESP 14; TEMP 36.4; O2SAT 98
--- OUTSIDE RECORDS SUMMARY | 2025-02-10 15:57 | XMS_ITS | Encounter Summary ---
Author Organization [facility] Address [address] [facility] [address] [place] [phone] Phone Care Team Providers Care Cloth Wire Weaver Name Role Phone Robert Dominguez DO Primary Care Provider Encounter Details Date Type Department Care Team (Late st Contact Info) Description 01/24/2023 Procedure Pass [facility] - [address] [place] [address] Social History Tobacco Use Types Packs/Day Years Used Date Smoking Tobacco: Never Assessed Education Answer Date Recorded Are you interested in more education? Not on jack e 08/03/2022 Are you concerned about learning? Not on file 08/03/2022 No 08/03/2022 No 08/03/2022 Digital Access Answer Date Recorded No 09/03/2022 No 09/03/2022 Reliable internet access at home? Not on file 09/03/2022 Device with a working camera? Not on file Comments No Sex and Gender Information Value Date Recorded Sex Assigned at Not on file Legal Sex Female 10:10 PM EDT Gender Identity Not on file Sexual Orientation Not on file documented as of this encounter Plan of Treatment Not on file documented as of this encounter Visit Diagnoses Not on filedocumented in this encounter Care Teams Cloth Wire Weaver Relationship Specialty Start Date End Date Robert Dominguez DO [address] [place] [phone] PCP - General 01/21/17 documented as of this encounter Additional Source Comments The information contained in this document represents components of the legal health record. It is not the complete legal health record.[facility]
--- OUTSIDE RECORDS SUMMARY | 2025-02-10 15:57 | XMS_ITS | Clinical Summary ---
Author Organization [facility] Address [address] [place] [phone] Phone Care Team Providers Care Manager Track Name Role Phone Alberto Robert Conklin Primary Care Provider Allergies Active Allergy Reactions Criticality Noted Date Comments Nsaids (Non-Steroidal Anti-I nflammatory Drug) Unknown 08/13/2023 Peanut 02/11/2014 Penicillins Unknown 02/11/2014 Sulfa (Sulfonamide Antibiotics) 09/2013 Tetanus Antitoxin 02/11/2014 Medications CAPSAICIN TOP Active Medication-Singh e Text Potassium Active GRAPE SEED EXTRACT ORAL Active estropipate (OGEN) 0.75 MG tablet 1 tablet Orally every other day alternating with 2 tablets Active Medication-Singh e Text Vitamin D Active OMEGA-3S/DHA/E PA/FISH OIL (OMEGA 3 ORAL) Activ e VIT C/VIT E/LUTEIN/MIN/O BRAEDEN-3 (OCUVITE ORAL) Activ e Medication-Singh e Text Vitamin E Active Medication-Singh e Text zyflamend Active biotin 10 mg Tab Take by mouth. Activ e magnesium oxide 500 mg magnesium Tab 1 tablet with a meal Orally Once a day for 30 day(s) Active COLLAGEN MISC by Miscellaneous route. Active estradioL (ESTRACE) 0.01 % (0.1 mg/gram) vaginal cream Place 1 g vaginally 2 (two) times a week. 42.5 g 3 5 Active estradioL (CLIMARA) 0.025 mg/[address] 1 patch onto the skin once a week. 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 Assessment & Plan (10/26/2024 1:02 PM EDT): She uses a bit of estrace with a finger a few times a week and would like to continue; this is refilled Assessment & Plan (10/29/2023 2:35 PM EDT): Vulvar abrasion has healed She is using the estrace topically about once a week when it feels it needs it Menopausal and postmenopausal disorder Assessment & Plan (10/26/2024 1:00 PM EDT): We reviewed her history of endometrial cancer But it has been 10 years since cancer and no recurrences It is improving her quality of life significantly She would like to continue Assessment & Plan (10/29/2023 2:34 PM EDT): She has been using the estradiol patch 0.025mg and feels a great improvement in sleep and energy. She would like to continue Assessment & Plan (08/13/2023 3:52 PM EDT): Reports feeling decreased energy, feeling of well being. Increased skin dryness, vulvovaginal dryness, and back and joint pain. She was on estrogen replacement in the past and felt better on this. In 2014 she had hysterectomy Everything out in [place] for gr1 endometrial cancer; she no longer follows with them. She has osteopenia. She would like to resume estrogen patch. I discuss that at her age this may increase risk of cardiovascular disease, stroke, GA. Also endometrial cancer recurrence is increased with use of estrogen. I advise her that her oncologist would likely not recommend estrogen use. However, as it has been 9 years without recurrence, this likelihood is low. She understands these risks and still would like to try HRT to see if it improves her quality of life, feeling of well being, and body and skin. I discuss that as long as she is aware of these small risks, that I will Rx this estradiol, low dose transdermal. We will f/u in 2 months to assess for improvement. Endometrial cancer, grade I 10/13/2014 Overview (10/26/2024): 2015 hysterectomy Encounters Date Type Department Care Team Description 01/19/2025 Orders Only [facility] [address] [place] [address] Dhaval Chilel MD 12/31/2024 8:17 AM EDT - 12/31/2024 11:59 PM EDT Hospital Encounter [facility] [address] [place] [address] Dhaval Chilel MD Discharge Disposition: Home or Self Care 11/26/2024 Transcribe Orders [facility] [address] [place] [address] Corina Hale PA Other specified disorders of bone density and structure, unspecified site (Primary Dx) 11/17/2024 Telephone Identified Group Rheumatology [address] [place] [address] Unknown, Unknown, MD Referral from Last 3 Months Family History Medical History Relation Comments Breast cancer Niece Relation Status Comments Niece Alive Social History Tobacco Use Types Packs/Day Years Used Date Smoking Tobacco: Never Smokeless Tobacco: Never Tobacco Cessation:Counseling Given: Not Answered Alcohol Use Standard Drinks/Week Comments Not Currently 0 (1 standard drink = 0.6 oz pur e alcohol) Education Answer Date Recorded Are you interested [...] on file Sexual Orientation Not on file Last Filed Vital Signs Vital Sign Reading Time Taken Comments Blood Pressure 110/62 10/26/2024 11:09 AM EDT Pulse 72 02/10/2024 12:36 PM EST Temperature 36.6 C (97.8 F) 02/10/2024 12:36 PM EST Respiratory Rate - - Oxygen Saturation 98% 02/10/2024 12:36 PM EST Inhaled Oxygen Concentration - - Weight - - Height 154.9 cm (5' 1 ) 10/26/2024 11:09 AM EDT Body Mass Index - - Plan of Treatment Health Maintenance Due Date Last Done Comments DEPRESSION SCREENING 1952 OSTEOPOROSIS SCREENING INITIAL (ONE-TIME) 09/07/2007 INFLUENZA VACCINE (#1) 2024 , 12/14/2022, 01/01/2022, Additional history exists COVID-19 VACCINE ( season) 2025 12/16/2024, 09/22/2024, 12/21/2023, Additional history exists Adult Td,Tdap Booster 09/22/2034 09/22/2024 ZOSTER VACCINES Completed 09/29/2019, 06/04/2019 RSV VACCINE Completed 02/22/2023 PNEUMOCOCCAL VACCINES (50+ years) Completed 06/22/2024, 02/22/2023 HEPATITIS A VACCINES Aged Out No long er eligible based on patient's age to complete this topic HIB VACCINES Aged Out No longer eligi ble based on patient's age to complete this topic MENINGOCOCCAL VACCINES (ACWY) Aged Out No longer eligible based on patient's age to complete this topic MENINGOCOCCAL VACCINES (B) Aged Out N o longer eligible based on patient's age to complete this topic Medical Devices Not on file Procedures Procedure Name Priority Date/Time Associated Diagnosis Comments COLONOSCOPY FOR RESULT ENTRY ONLY Routine 12/31/2024 2:37 PM EDT ANATOMIC PATHOLOGY Routine 12/31/2024 12 :00 AM EDT from Last 3 Months Results * COLONOSCOPY FOR RESULT ENTRY ONLY (12/31/2024 2:37 PM EDT) Dhaval Chilel MD HEALTH MAINTENANCE Final R esult * Anatomic Pathology (Non-MGB) (12/31/2024 12:00 AM EDT) Report [address] [id number] Product Developer: Tim Ayala MD Surgical Pathology Report FINAL PATHOLOGIC DIAGNOSIS: TRANSVERSE COLON, POLYP: Adenomatous polyp. Electronically Signed Out By Tim Ayala MD By his/her signature above, the pathologist listed as making the Final Diagnosis certifies that he/she has personally reviewed this case and confirmed or corrected the diagnosis. CLINICAL HISTORY Preoperative diagnosis: Personal history of polyps, date of last colonoscopy: 5 years ago no prior procedure note available Postoperative diagnosis: Polyps SPECIMENS SUBMITTED: A: TRANSVERSE COLON, POLYP GROSS DESCRIPTION TRANSVERSE COLON, POLYP: Received in formalin is a 0.4 x 0.4 x 0.2 cm irregular portion of joy-pink mucosal tissue which is submitted in toto in a single cassette labeled A1. Grossed by: KASSANDRA Espinoza PA(ASCP) [id number] 01/01/2025 Grossing Staff: [id number] Patient Name: DALIA ACUNA : 1940 (Age: 84) Sex: F Institution: [facility] Location: [facility] Date of Operation: 12/31/2024 Date of Reported: 01/04/2025 13:38 Results To: Dhaval Chilel MD, [facility] Clinical History Preoperative diagnosis: Personal history of polyps, date of last colonoscopy: 5 years ago no prior procedure note available Postoperative diagnosis: Polyps [facility] Final Diagnosis TRANSVERSE COLON, POLYP: Adenomatous polyp. [facility] Gross Description TRANSVERSE COLON, POLYP: Received in formalin is a 0.4 x 0.4 x 0.2 cm irregular portion of joy-pink mucosal tissue which is submitted in toto in a single cassette labeled A1. Grossed by: KASSANDRA Espinoza PA(ASC) [facility] Conversion Type (Conversion Source) 12/31/2024 01/01/2025 9:05 AM EDT us Dhaval Chilel MD LAB PATHOLOGY ORDERABLES E dited Result - Final [facility] [address] [place] [address] from Last 3 Months Insurance [facility] MEDICARE PPO BLUE REPLACEMENT [facility] MEDICARE PPO BLUE REPLACEMENT [facility] MEDICARE PPO BLUE REPLACEMENT [facility] MEDICARE PPO BLUE REPLACEMENT [facility] MEDICARE PPO BLUE REPLACEMENT Care Teams Manager Track Relationship Specialty Start Date End Date Robert Dominguez DO [address] [place] [phone] PCP - General 01/21/17 Additional Source Comments The information contained in this document represents components of the legal health record. It is not the complete legal health record.[facility]
--- OUTSIDE RECORDS SUMMARY | 2025-02-10 15:57 | XMS_ITS | Encounter Summary ---
Author Organization [facility] Address [address] [facility] [address] [place] [address] Phone Care Team Providers Care Meat Products Demonstrator Name Role Phone Robert Dominguez DO Primary Care Provider Encounter Details Date Type Department Care Team (Latest Contact Info) Description 01/21/2024 Transcribe Orders Virtual Department [address] [place] [address] Robert Dominguez DO [address] [place] [address] Encounter for screening mammogram for malignant neoplasm of breast (Primary Dx) Social History Tobacco Use Types Packs/Day Years Used Date Smoking Tobacco: Never Smokeless Tobacco: Never Alcohol Use Standard Drinks/Week Comments Not Currently [...] on file documented as of this encounter Results * BI MAMMOGRAM SCREENING WITH TOMOSYNTHESIS WITH CAD (BILATERAL) (06/26/2024 1:02 PM EDT) Anatomical Region Laterality Modality Breast Left, Breast Right, Breast Bilateral Bila teral Mammography 06/29/2024 10:5 2 AM EDT Impressions 06/29/2024 10:54 AM EDT No mammographic evidence of malignancy in either breast. Annual screening mammography is recommended. BI-RADS 1 NEGATIVE The patient will be notified of the results and recommendations. Narrative 06/29/2024 10:54 AM EDT BI MAMMOGRAM SCREENING WITH TOMOSYNTHESIS WITH CAD (BILATERAL) Additional patient information: Screening. COMPARISON: Comparison is made with relevant prior imaging. Breast composition: There are scattered areas of fibroglandular density. FINDINGS: No abnormal masses, suspicious calcifications, or other significant findings are identified mammographically in either breast. Procedure Note Carla Moore MD, PhD - 06/29/2024 BI MAMMOGRAM SCREENING WITH TOMOSYNTHESIS WITH CAD (BILATERAL) Additional patient information: Screening. COMPARISON: Comparison is made with relevant prior imaging. Breast composition: There are scattered areas of fibroglandular density. FINDINGS: No abnormal masses, suspicious calcifications, or other significantfindings are identified mammographically in either breast. IMPRESSION: No mammographic evidence of malignancy in either breast. Annual screening mammography is recommended. BI-RADS 1 NEGATIVE The patient will be notified of the results and recommendations. Robert Dominguez DO IMG MG EXAMS Final Result documented in this encounter Visit Diagnoses Diagnosis Encounter for screening mammogram for malignant neoplasm of breast- Primary Encounter for screening mammogram for malignant neoplasm of breast documented in this encounter Care Teams Meat Products Demonstrator Relationship Specialty Start Date End Date Robert Dominguez DO [address] [place] [address] PCP - General 01/21/17 documented as of this encounter Additional Source Comments The information contained in this document represents components of the legal health record. It is not the complete legal health record.[facility]
--- OUTSIDE RECORDS SUMMARY | 2025-02-10 15:57 | XMS_ITS | Encounter Summary ---
Author Organization [facility] Address [address] [place] [address] [place] [phone] Phone Care Team Providers Care Rn Dermatology Name Role Phone Robert Dominguez DO Primary Care Provider Encounter Details Date Type Department Care Team (Latest Contact Info) Description 02/27/2017 Transcribe Orders [address] [place] [address] Robert Dominguez DO [address] [place] [id number] Nonvenomous insect bite of breast without infection, unspecified laterality, initial encounter (Primary Dx) Social History Tobacco Use Types Packs/Day Years Used Date Smoking Tobacco: Never Assessed Comments Unknown Sex and Gender Information Value Date Recorded Sex Assigned at Not on file Legal Sex Female 10:10 PM EDT Gender Identity Not on file Sexual Orientation Not on file documented as of this encounter Plan of Treatment Not on file documented as of this encounter Procedures Procedure Name Priority Date/Time Associated Diagnosis Comments LYME SCREEN WITH REFLEX TO WESTERN BLOT, BLOOD Routine 02/27/2017 4:04 PM EST Nonvenomous insect bite of breast without infection, unspecified laterality, initial encounter CBC AND DIFFERENTIAL Routine 02/27/2017 4:04 PM EST Nonvenomous insect bite of breast without infection, unspecified laterality, initial encounter C-REACTIVE PROTEIN (CRP) Routine 02/27/2017 4:04 PM EST Nonvenomous insect bite of breast without infection, unspecified laterality, initial encounter documented in this encounter Results * Lyme screen with reflex to Western blot, blood (02/27/2017 4:04 PM EST) Lyme AB IgG Negative Negative [facility] Lyme AB IgM Negative Negative [facility] Blood 02/27/2017 4:04 PM EST 02/27/2017 4:07 PM EST [facility] LAB BLOOD BKR ORDERABLES Fin al Result Performing Organization Address City/[facility]/ZIP Co de Phone Number [address] [address] * C-Reactive Protein (02/27/2017 4:04 PM EST) Pathologist [facility] C REACTIVE PROTEIN 0.3 0 - 0.5 mg/L [facility] Blood 02/27/2017 4:04 PM EST 02/27/2017 4:07 PM EST [facility] LAB BLOOD BKR ORDERABLES Fin al Result Performing Organization Address City/[facility] Co de Phone Number [address] [phone] * CBC and differential (02/27/2017 4:04 PM EST) Pathologist [facility] WBC 4.63 3.40 - 11.20 K/uL [facility] RBC 3.93 3.80 - 4.80 M/uL [facility] HGB 13.1 12.0 - 15.0 g/dL [facility] HCT 37.0 36.0 - 46.0 % [facility] PLT 219 130 - 400 K/uL [facility] MCV 94.1 79.0 - 98.0 [facility] MCH 33.3 27.0 - 34.8 pg [facility] MCHC 35.4 31.5 - 36.0 g/dL [facility] RDW 12.3 10.8 - 14.6 % [facility] MPV 10.3 9.4 - 12.4 [facility] NRBC 0.00 /100 WBCs [facility] ABSOLUTE NRBC 0.00 K/uL [facility] DIFF METHOD Auto [facility] NEUTS 65.2 45.30 - 77.70 % [facility] LYMPHS 23.3 12.30 - 39.70 % [facility] MONOS 8.9 4.10 - 12.80 % [facility] EOS 1.5 0 - 7.2 % [facility] BASOS 0.9 0 - 2.80 % [facility] Granulocytes, immature (%) 0.2 0.0 - 0.9 % [facility] ABSOLUTE NEUTS 3.02 1.40 - 7.70 K/uL [facility] ABSOLUTE LYMPHS 1.08 0.60 - 3.20 K/uL [facility] ABSOLUTE MONOS 0.41 0.11 - 0.59 K/uL [facility] ABSOLUTE EOS 0.07 0.01 - 0.50 K/uL [facility] ABSOLUTE BASOS 0.04 0.00 - 0.08 K/uL [facility] Granulocytes, immature 0.01 0.00 - 0.05 K/uL [facility] Blood 02/27/2017 4:04 PM EST 02/27/2017 4:07 PM EST us Robert Dominguez DO LAB BLOOD BKR ORDERABLES Fin al Result Performing Organization Address City/State/[facility] Co de Phone Number [facility] [address] [place] [address] documented in this encounter Visit Diagnoses Diagnosis Nonvenomous insect bite of breast without infection, unspecified laterality, initial encounter- Primary documented in this encounter Care Teams Rn Dermatology Relationship Specialty Start Date End Date Robert Dominguez DO [address] [place] [phone] PCP - General 01/21/17 documented as of this encounter Additional Source Comments The information contained in this document represents components of the legal health record. It is not the complete legal health record.[facility]
--- OUTSIDE RECORDS SUMMARY | 2025-02-10 15:57 | XMS_ITS | Encounter Summary ---
Author Organization [facility] Address [address] [facility] [address] [place] [phone] Phone Care Team Providers Care Irish Moss Bleacher Name Role Phone Robert Dominguez DO Primary Care Provider [phone] Encounter Details Date Type Department Care Team (Late st Contact Info) Description 01/21/2024 Procedure Pass [facility] - [address] [place] [address] Social History Tobacco Use Types Packs/Day Years [...] on filedocumented in this encounter Care Teams Irish Moss Bleacher Relationship Specialty Start Date End Date Robert Dominguez DO [address] [place] [phone] PCP - General 01/21/17 documented as of this encounter Additional Source Comments The information contained in this document represents components of the legal health record. It is not the complete legal health record.[facility]
--- OUTSIDE RECORDS SUMMARY | 2025-02-10 15:58 | XMS_ITS | Encounter Summary ---
Author Organization [facility] Address [address] [facility] [address] [place] [address] Phone Care Team Providers Care Transport Operations Inspector Name Role Phone Robert Dominguez DO Primary Care Provider [phone] Encounter Details Date Type Department Care Team (Latest Contact Info) Description 09/19/2017 Transcribe Orders [address] [place] [address] Robert Dominguez DO [address] [place] [address] [phone] Fatigue, unspecified type (Primary Dx); Dehydration Social History Tobacco Use Types Packs/Day Years Used Date Smoking Tobacco: Never Assessed Comments Unknown Sex and Gender Information Value Date Recorded Sex Assigned at Not on file Legal Sex Female 10:10 PM EDT Gender Identity Not on file Sexual Orientation Not on file documented as of this encounter Plan of Treatment Not on file documented as of this encounter Results * Urinalysis w/reflex Urine Culture (09/19/2017 4:03 PM EDT) COLOR Yellow Yellow [facility] CLARITY Clear [facility] GLUCOSE Negative Negative [facility] BILI Negative Negative [facility] KETONES Negative Negative [facility] SPECIFIC GRAVITY 1.015 1.005 - 1.030 [facility] BLOOD Negative Negative [facility] PH 5.5 5.0 - 8.0 [facility] Protein-UA Negative Negative [facility] NITRITE Negative Negative [facility] Leukocyte esterase, ur Negative Negative [facility] Urine (Urine) 09/19/2017 4:0 3 PM EDT 09/19/2017 4:06 PM EDT us Robert Dominguez DO LAB URINE ORDERABLES Final R esult Performing Organization Address [facility]/ZIP Co de Phone Number [address] [address] * TSH (09/19/2017 4:03 PM EDT) TSH 0.61 0.27 - 4.20 uIU/mL [facility] Blood 09/19/2017 4:03 PM EDT 09/19/2017 4:05 PM EDT us Robert Dominguez DO LAB BLOOD BKR ORDERABLES Fin al Result Performing Organization Address [facility] Co de Phone Number [address] [address] * Free T4 (09/19/2017 4:03 PM EDT) Pathologist [facility] FREE T4 1.3 0.9 - 1.7 ng/dL [facility] Blood 09/19/2017 4:03 PM EDT 09/19/2017 4:05 PM EDT us Robert Dominguez DO LAB BLOOD BKR ORDERABLES Fin al Result Performing Organization Address [facility] Co de Phone Number [address] [address] * C-Reactive Protein (09/19/2017 4:03 PM EDT) Pathologist [facility] C REACTIVE PROTEIN 1.6 0.0 - 4.0 mg/L [facility] Comment:New Reference Range and Measuring Units effective 08/21/17. Blood 09/19/2017 4:03 PM EDT 09/19/2017 4:05 PM EDT Robert Dominguez DO LAB BLOOD BKR ORDERABLES Fin al Result Performing Organization Address [facility] Co de Phone Number [address] [address] * (ABNORMAL) CBC and differential (09/19/2017 4:03 PM EDT) WBC 4.14 3.40 - 11.20 K/uL [facility] RBC 3.81 3.80 - 4.80 M/uL [facility] HGB 13.6 12.0 - 15.0 g/dL [facility] HCT 36.7 36.0 - 46.0 % [facility] PLT 245 130 - 400 K/uL [facility] MCV 96.3 79.0 - 98.0 fL [facility] MCH 35.7(H) 27.0 - 34.8 pg [facility] MCHC 37.1(H) 31.5 - 36.0 g/dL [facility] RDW 12.6 10.8 - 14.6 % [facility] MPV 11.2 9.4 - 12.4 [facility] NRBC 0.00 /100 WBCs [facility] ABSOLUTE NRBC 0.00 K/uL [facility] DIFF METHOD Auto [facility] NEUTS 59.9 45.30 - 77.70 % [facility] LYMPHS 28.0 12.30 - 39.70 % [facility] MONOS 8.7 4.10 - 12.80 % [facility] EOS 2.7 0 - 7.2 % [facility] BASOS 0.5 0 - 2.80 % [facility] Granulocytes, immature (%) 0.2 0.0 - 0.9 % [facility] ABSOLUTE NEUTS 2.48 1.40 - 7.70 K/uL [facility] ABSOLUTE LYMPHS 1.16 0.60 - 3.20 K/uL [facility] ABSOLUTE MONOS 0.36 0.11 - 0.59 K/uL [facility] ABSOLUTE EOS 0.11 0.01 - 0.50 K/uL [facility] ABSOLUTE BASOS 0.02 0.00 - 0.08 K/uL [facility] Granulocytes, immature 0.01 0.00 - 0.05 K/uL [facility] Blood 09/19/2017 4:03 PM EDT 09/19/2017 4:05 PM EDT us Robert Dominguez DO LAB BLOOD BKR ORDERABLES Fin al Result Performing Organization Address City[facility]/ZIP Co de Phone Number [address] [phone] * Comprehensive metabolic panel (09/19/2017 4:03 PM EDT) SODIUM 142 133 - 146 mmol/L [facility] POTASSIUM 4.2 3.3 - 5.1 mmol/L [facility] CHLORIDE 102 96 - 108 mmol/L [facility] CO2 29 21 - 35 mmol/L [facility] BUN 19 6 - 19 mg/dL [facility] CREATININE 0.80 0.5 - 1.5 mg/dL [facility] GLUCOSE 95 70 - 99 mg/dL [facility] ALBUMIN 3.9 3.9 - 4.8 g/dL [facility] TOTAL PROTEIN 6.7 6.5 - 8.0 g/dL [facility] CALCIUM 9.2 8.4 - 10.3 mg/dL [facility] ALKALINE PHOSPHATASE 76 39 - 117 U/L [facility] TOTAL BILIRUBIN 0.4 0.0 - 1.2 mg/dL [facility] AST 20 0 - 37 U/L [facility] ALT 9 0 - 40 U/L [facility] GLOBULIN 2.8 1 - 4.8 g/dL [facility] EGFR 72 >59 mL/min/1.7 3m2 [facility] Comment:If patient is black, multiply result by 1.159. Estimated glomerular filtration rate calculated using the CKD-EPI equation. ANION GAP 15 10 - 20 mmol/L [facility] Blood 09/19/2017 4:03 PM EDT 09/19/2017 4:05 PM EDT us Robert Dominguez DO LAB BLOOD BKR ORDERABLES Fin al Result Performing Organization Address [facility]/ZIP Co de Phone Number [address] [address] documented in this encounter Visit Diagnoses Diagnosis Fatigue, unspecified type- Primary Dehydration documented in this encounter Care Teams Transport Operations Inspector Relationship Specialty Start Date End Date Robert Dominguez DO [address] [place] [phone] PCP - General 01/21/17 documented as of this encounter Additional Source Comments The information contained in this document represents components of the legal health record. It is not the complete legal health record.[facility]
--- OUTSIDE RECORDS SUMMARY | 2025-02-10 15:58 | XMS_ITS | Encounter Summary ---
Author Organization [facility] Address [address] [facility] [address] [place] [phone] Phone Care Team Providers Care Diesel Power Shovel Operator Name Role Phone Robert Dominguez DO Primary Care Provider [phone] Encounter Details Date Type Department Care Team (Latest Contact Info) Description 01/24/2023 Transcribe Orders Virtual Department [address] [place] [address] Robert Dominguez DO [address] [place] [address] Breast screening (Primary Dx) Social History Tobacco Use Types [...] a working camera? Not on file Comments Unknown Sex and Gender Information Value Date Recorded Sex Assigned at Not on file Legal Sex Female 10:10 PM EDT Gender Identity Not on file Sexual Orientation Not on file documented as of this encounter Plan of Treatment Not on file documented as of this encounter Results * BI MAMMOGRAM SCREENING WITH TOMOSYNTHESIS WITH CAD (BILATERAL) (03/05/2023 2:30 PM EST) Anatomical Region Laterality Modality Breast Left, Breast Right, Breast Bilateral Bila teral Mammography 03/06/2023 10:0 4 AM EST Impressions 03/06/2023 10:08 AM EST No mammographic signs of malignancy. Annual screening is recommended. BI-RADS CATEGORY: 1 - Negative. DENSITY: There are scattered fibroglandular densities. LEFT RECOMMENDATION DUE DATE: 12 Months Left Mammography Screening RIGHT RECOMMENDATION DUE DATE: 12 Months Right Mammography Screening Narrative 03/06/2023 10:08 AM EST Bilateral mammography is performed in conjunction with computed aided detection. 3-D tomography along with 2-D C view imaging was also performed. Comparison made to previous 09/21/2014. No suspicious masses, areas of architectural distortion or suspicious microcalcifications. Procedure Note Mac Steinberg MD - 03/06/2023 Bilateral mammography is performed in conjunction with computed aideddetection. 3-D tomography along with 2-D C view imaging was alsoperformed. Comparison made to previous 09/21/2014. No suspicious masses, areas of architectural distortion or suspiciousmicrocalcifications. IMPRESSION: No mammographic signs of malignancy. Annual screening is recommended. BI-RADS CATEGORY: 1 - Negative. DENSITY: There are scattered fibroglandular densities. LEFT RECOMMENDATION DUE DATE: 12 Months Left Mammography Screening RIGHT RECOMMENDATION DUE DATE: 12 Months Right Mammography Screening Robert Dominguez DO IMG MG EXAMS Final Result documented in this encounter Visit Diagnoses Diagnosis Breast screening- Primary Breast screening, unspecified Breast screening Breast screening, unspecified documented in this encounter Care Teams Diesel Power Shovel Operator Relationship Specialty Start Date End Date Robert Dominguez DO [address] [place] [phone] PCP - General 01/21/17 documented as of this encounter Additional Source Comments The information contained in this document represents components of the legal health record. It is not the complete legal health record.[facility]
--- OUTSIDE RECORDS SUMMARY | 2025-02-10 15:58 | XMS_ITS | Encounter Summary ---
Author Organization [facility] Address [address] [place] [address] Phone Care Team Providers Care Cad Detailer Name Role Phone AlbertoRobert romero Primary Care Provider [phone] Encounter Details Date Type Department Care Team (Late st Contact Info) Description 01/19/2025 Orders Only [facility] [address] [place] [address] Dhaval Chilel MD [address] [address] [email or web address] Social History Tobacco Use Types Packs/Day Years [...] Procedure Name Priority Date/Time Associated Diagnosis Comments HM COLONOSCOPY FOR RESULT ENTRY ONLY Routine 12/31/2024 2:37 PM EDT documented in this encounter Results * HM COLONOSCOPY FOR RESULT ENTRY ONLY (12/31/2024 2:37 PM EDT) Dhaval Chilel MD HEALTH MAINTENANCE Final R esult documented in this encounter Visit Diagnoses Not on filedocumented in this encounter Care Teams Cad Detailer Relationship Specialty Start Date End Date Robert Dominguez DO [address] [place] [phone] PCP - General 01/21/17 documented as of this encounter Additional Source Comments The information contained in this document represents components of the legal health record. It is not the complete legal health record.[facility]
--- OUTSIDE RECORDS SUMMARY | 2025-02-10 15:58 | XMS_ITS | Encounter Summary ---
Author Organization [facility] Address [address] [place] [address] Phone Care Team Providers Care Travel Nurse Name Role Phone AlbertoRobert romero Primary Care Provider [phone] Reason for Visit * Reason Onset Date Comments Referral 11/17/2024 Encounter Details Date Type Department Care Team (Late st Contact Info) Description 11/17/2024 [facility] [address] [place] [phone] Unknown, Unknown, MD Referral Social History Tobacco Use Types Packs/Day Years [...] on file documented as of this encounter Progress Notes * Pamela Flores - 11/17/2024 11:00 AM EDT Pt called in to make [facility] MAINTENANCE CREW WORKER appt please see if we have a referral to enter into the chart. Central Support New Accounts Representative (Please do not reply to this user; this inbox is not monitored.) Thank you. documented in this encounter Plan of Treatment Not on file documented as of this encounter Visit Diagnoses Not on filedocumented in this encounter Care Teams Travel Nurse Relationship Specialty Start Date End Date Robert Dominguez DO [address] [place] [phone] PCP - General 01/21/17 documented as of this encounter Additional Source Comments The information contained in this document represents components of the legal health record. It is not the complete legal health record.[facility]
== END 2025-02-10 14:23 | disposition home or self-care (01) ==
LOC: HO.HMCSH 13:11
PROVIDERS: PCP Physician Assistant Medical; Visit Provider Physician Assistant Medical
DX: S63.619A Unspecified sprain of unspecified finger, initial encounter (principal); Z29.9 Encounter for prophylactic measures, unspecified; M85.80 Other specified disorders of bone density and structure, unspecified site; R01.1 Cardiac murmur, unspecified; Z00.00 Encounter for general adult medical examination without abnormal findings

== ENCOUNTER → 2025-02-10 13:11 | Outpatient (BNVA) | payer MEDICARE, SELFPAY | PROVIDERS: PCP Internal Medicine; Visit Provider Physician Assistant Medical | DX: Z00.00 Encounter for general adult medical examination without abnormal findings (principal); M85.80 Other specified disorders of bone density and structure, unspecified site; R01.1 Cardiac murmur, unspecified; S63.612A Unspecified sprain of right middle finger, initial encounter; S63.614A Unspecified sprain of right ring finger, initial encounter; X58.XXXA Exposure to other specified factors, initial encounter; Y93.9 Activity, unspecified; Y92.9 Unspecified place or not applicable; Y99.9 Unspecified external cause status; Z29.9 Encounter for prophylactic measures, unspecified | CPT/HCPCS: 96127; 99212 ==